=== PATIENT | male | born 1970 | race Native Hawaiian/Other Pacific Islander ===

== ENCOUNTER → 2016-12-01 | Outpatient (CLI) | payer OTHER ==
--- NOTE | 2016-12-01 13:31 | EST ---
DATE OF SERVICE: 12/01/16 AGE: 46Y SEX: M HT: 69" WT: 185 lbs. Protocol Vinod: X Other: Stage: 3 Dur. of Exercise: 10:33 *Heart Rate Blood Pressure *Rest: 78 Rest: 129/78 * *Max. Achieved: 156 Maximum BP: 174/65 85% PMHR: 149 100% PMHR: 175 *METS: 11.5 INDICATIONS: Chest pain MEDICATIONS: Baseline rhythm is a sinus mechanism, rate 78, normal axis and intervals. Normal electrocardiogram. Baseline blood pressure 129/78 mmHg. Patient was exercised on Vinod protocol for 10 minutes 23 seconds reaching peak rate of 156 beats per minute, which is equal to 89% maximum predicted heart rate; peak blood pressure 174/65 mmHg. Test was terminated secondary to fatigue. There was no chest pain. Electrocardiographic monitoring revealed no evidence of diagnostic ischemic ST deviation. CONCLUSION: 1. Average good exercise tolerance with normal electrocardiograph response to exercise. 2. No chest discomfort during exercise.
== END | disposition home or self-care (01) ==
LOC: RADNMMAIN 10:53
PROVIDERS: ATTEND Family Medicine
DX: R00.2 Palpitations (principal); R53.83 Other fatigue
CPT/HCPCS: 93017

== ENCOUNTER → 2017-07-03 | Outpatient (CLI) | payer OTHER ==
--- NOTE | 2017-07-03 20:14 | MR ---
EXAMINATION TYPE: MR lumbar spine wo con DATE OF EXAM: 07/03/2017 COMPARISON: NONE HISTORY: LBP, muscle weakness, BLE radic TECHNIQUE: Multiplanar, multisequence images of the lumbar spine were acquired. Lumbar vertebral bodies maintain normal vertebral body heights and alignment. Bone marrow signal is w ithin normal limits. Spinal cord signal is unremarkable with conus medullaris terminating at T12-L1. Multilevel intervertebral disc desiccation is present. L1-L2: Mild intervertebral disc desiccation is seen with a small broad-based disc bulge demonstrated as flattening of the usual posterior disc convexity. No spinal canal stenosis or neural foraminal alexa rowing. L2-L3: Broad-based disc bulge is seen resulting in minimal bilateral neural foraminal narrowing in co mbination with facet arthropathy. No spinal canal stenosis. Small annular tear is also identified. L3-L4: Broad-based disc bulge is seen resulting in mild bilateral neural foraminal narrowing. No spin al canal stenosis. Mild facet arthropathy. L4-L5: Right paracentral annular tear and small disc protrusion/herniation extends into the right lat eral recess resulting in mild right neural foraminal narrowing without impression upon the exiting L4 nerve root. Facet arthropathy and mild ligamentum flavum hypertrophy are also seen contributing to m ild left neural foraminal narrowing. No spinal canal stenosis. L5-S1: Focal central small disc protrusion/herniation is seen as well as annular tear. This is superi mposed upon a broad-based disc bulge creating moderate bilateral neural foraminal narrowing. No spina l canal stenosis. IMPRESSION: 1. Right paracentral disc herniation at L4-L5 extending into the right lateral recess resulting in mi ld neural foraminal narrowing. Mild left neural foraminal narrowing is also present. 2. Central disc protrusion/herniation with annular tear at L5-S1 at L5-S1 superimposed upon a broad-b ased disc bulge resulting in moderate bilateral neural foraminal narrowing. 3. Multilevel degenerative disc disease resulting in mild bilateral neural foraminal narrowing at L2- L3 and L3-L4 in addition to the above findings. 4. No evidence of spinal canal stenosis.
== END | disposition home or self-care (01) ==
LOC: RADMRIMAIN 15:11
PROVIDERS: ATTEND Physical Medicine & Rehabilitation
DX: M99.73 Connective tissue and disc stenosis of intervertebral foramina of lumbar region (principal); M51.17 Intervertebral disc disorders with radiculopathy, lumbosacral region; M62.81 Muscle weakness (generalized)
CPT/HCPCS: 72148

== ENCOUNTER 2022-12-13 11:39 | Day surgery (SDC) | payer OTHER ==
[2022-12-11 16:19] VITALS: BMI 30.4
[2022-12-13] MEDS ORDERED: LACTATED RINGERS 1,000 ML IV SCH (12:28)
[2022-12-13 12:35] VITALS: TEMP 97.8
[2022-12-13] MEDS ORDERED: PROPOFOL 10 MG/ML 20 ML VIAL IV ONE (12:47)
--- NOTE | 2022-12-13 13:01 | P.PCN ---
Date of Procedure: 12/13/22 Procedure(s) Performed: BRIEF HISTORY: Patient is a 52-year-old pleasant male scheduled for an elective colonoscopy as a part of screening for colon cancer. PROCEDURE PERFORMED: Colonoscopy with snare polypectomy. PREOPERATIVE DIAGNOSIS: Screening for colon cancer. IV sedation per Anesthesia. PROCEDURE: After informed consent was obtained, the patient, was brought into the endoscopy unit. IV sedation was administered by Anesthesia under continuous monitoring. Digital rectal examination was normal. Initially the Olympus CF-160 flexible video colonoscope was then inserted in the rectum, gradually advanced into the cecum without any difficulty. Careful examination was performed as the scope was gradually being withdrawn. Ileocecal valve and the appendiceal orifice were visualized and appeared normal. Prep was excellent. Mucosa of the cecum, and a 5 mm sessile polyp removed by snare polypectomy. Rest of the ascending colon, transverse colon, descending colon, sigmoid colon, and rectum appeared normal. Retroflexion was performed in the rectum and no lesions were seen. The patient tolerated the procedure well. IMPRESSION: 5 mm cecal polyp status post snare polypectomy Rest of the colon appeared normal RECOMMENDATIONS: Findings of this examination were discussed with the patient as well as his family.. He was advised to follow with the biopsy results. If the biopsy result adenoma he can have a repeat colonoscopy in 5 years.
[2022-12-13 13:07] VITALS: RESP 18
[2022-12-13 13:20] VITALS: BP 148/89; PULSE 62
== END 2022-12-13 13:35 | disposition home or self-care (01) ==
LOC: ORWHC2ENDO 11:39
PROVIDERS: ATTEND Internal Medicine Gastroenterology
DX: Z12.11 Encounter for screening for malignant neoplasm of colon (principal); K63.5 Polyp of colon; H91.90 Unspecified hearing loss, unspecified ear; Z79.01 Long term (current) use of anticoagulants
CPT/HCPCS: 88305; 45385; J2704